=== PATIENT | female | born 1985 | race African-American/Black ===

== ENCOUNTER 2017-10-20 17:28 | Emergency (ER) | payer BC ==
[2017-10-20 17:40] VITALS: BP 136/77
--- NOTE | 2017-10-20 17:52 | ER Document Report ---
ED Medical Screen (RME) - General Mode of Arrival: Ambulatory Information source: Patient TRAVEL OUTSIDE OF THE [place] IN LAST 30 DAYS: No - General Chief Complaint: Flank Pain Stated Complaint: FLANK PAIN Time Seen by Provider: 10/20/17 17:39 Notes: Patient is a 31 year old female presenting to the emergency department complaining of left flank pain and abdominal onset yesterday. Patient states the flank pain radiates into her lower left abdomen. She describes the pain as a sharp waxing and waning. Patient mentions having a bowel movement earlier which appears to have alleviated some of the pain. Patient denies urinary burning, frequency, vomiting or nausea. Patient states she is currently on her period so she is unsure if she has had any hematuria. GENERAL: Alert, interacts well. No acute distress. HEAD: Normocephalic, Atraumatic. NECK: Full range of motion. Supple. Trachea midline. LUNGS: Clear to auscultation bilaterally, no wheezes, rales, or rhonchi. No respiratory distress. HEART: Regular rate and rhythm. No murmurs, gallops, or rubs. ABDOMEN: Soft, non-tender. Non-distended. Bowel sounds present in all 4 quadrants. EXTREMITIES: Moves all four extremities spontaneously. PSYCH: Normal affect, normal mood. I have greeted and performed a rapid initial assessment of this patient. A comprehensive ED assessment and evaluation of the patient, analysis of test results and completion of the medical decision making process will be conducted by additional ED providers. (ABBIE TRAN) - Related Data Allergies/Adverse Reactions: No Known Allergies Allergy (Unverified 10/20/17 17:34) Past Medical History - Social History Chew tobacco use (# tins/day): No Frequency of alcohol use: None Drug Abuse: None Renal/ Medical History: Denies: Hx Peritoneal Dialysis - Vital signs Vitals: Temp Pulse Resp BP Pulse Ox 98.9 F 97 18 136/77 H 100 10/20/17 17:38 10/20/17 17:38 10/20/17 17:38 10/20/17 17:38 10/20/17 17:38 - Vital Signs Vital signs: Temp Pulse Resp BP Pulse Ox 98.9 F 97 18 136/77 H 100 10/20/17 17:38 10/20/17 17:38 10/20/17 17:38 10/20/17 17:38 10/20/17 17:38
[2017-10-20 18:33] LABS: ABSOLUTE LYMPHOCYTES (AUTO) 1.8 10^3/uL (0.5-4.7); ABSOLUTE MONOCYTES (AUTO) 0.5 10^3/uL (0.1-1.4); ABSOLUTE NEUT (AUTO) 8.6 10^3/uL (1.7-8.2); BASOPHILS % (AUTO) 0.3 % (0-2); EOSINOPHILS % (AUTO) 0.2 % (0-6); HEMATOCRIT 37.7 % (36.0-47.0); HEMOGLOBIN 12.5 g/dL (12.0-15.5); LYMPHOCYTES % (AUTO) 16.3 % (13-45); MEAN CORPUSCULAR HEMOGLOBIN 29.7 pg (27.0-33.4); MEAN CORPUSCULAR HGB CONC 33.1 g/dL (32.0-36.0); MEAN CORPUSCULAR VOLUME 90 fl (80-97); MONOCYTES % (AUTO) 4.9 % (3-13); PLATELET COUNT 329 10^3/uL (150-450); RED CELL DISTRIBUTION WIDTH 14.7 % (11.5-14.0); SEGMENTED NEUTROPHILS % (AUTO) 78.3 % (42-78); TOTAL CELLS COUNTED % (AUTO) 100 %
[2017-10-20 18:38] LABS: AMORPHOUS SEDIMENT,URINE TRACE /HPF; APPEARANCE,URINE SLIGHTLY-CLOUDY; BILIRUBIN,URINE NEGATIVE (NEGATIVE); COLOR,URINE YELLOW; GLUCOSE, URINE NEGATIVE (NEGATIVE); KETONES,URINE NEGATIVE (NEGATIVE); LEUKOCYTE ESTERASE,URINE NEGATIVE (NEGATIVE); NITRITE,URINE NEGATIVE (NEGATIVE); PROTEIN,URINE NEGATIVE (NEGATIVE); URINE SPECIFIC GRAVITY 1.018
[2017-10-20 18:52] LABS: ALANINE AMINOTRANSFERASE 20 U/L (9-52); ALBUMIN 4.3 g/dL (3.5-5.0); ALKALINE PHOSPHATASE 58 U/L (38-126); ANION GAP 13 (5-19); ASPARTATE AMINO TRANSFERASE 20 U/L (14-36); BILIRUBIN,DIRECT 0.2 mg/dL (0.0-0.4); BILIRUBIN,TOTAL 0.2 mg/dL (0.2-1.3); BLOOD UREA NITROGEN 9 mg/dL (7-20); CALCIUM 9.5 mg/dL (8.4-10.2); CARBON DIOXIDE 24 mmol/L (22-30); CHLORIDE 107 mmol/L (98-107); GLUCOSE 89 mg/dL (75-110); POTASSIUM 3.7 mmol/L (3.6-5.0); TOTAL PROTEIN 7.5 g/dL (6.3-8.2)
[2017-10-20] MEDS ORDERED: ONDANSETRON HCL INJ/PF 4 MG/2 ML SDV IV ONE (18:59)
[2017-10-20] MEDS ORDERED: KETOROLAC TROMETHAMINE INJ/PF 30 MG/1 ML SDV IV ONE (19:00)
--- NOTE | 2017-10-20 19:19 | RADIOLOGY REPORT (SQ) ---
EXAM DESCRIPTION: CT LTD RENAL STONE PROTOCOL ON COMPLETED DATE/TIME: 10/20/2017 7:08 pm REASON FOR STUDY: flank pain, evaluate for stone COMPARISON: None. TECHNIQUE: CT scan of the abdomen and pelvis performed without intravenous or oral contrast. Images reviewed with lung, soft tissue, and bone windows. Reconstructed coronal and sagittal MPR images revi ewed. All images stored on PACS. All CT scanners at this facility use dose modulation, iterative reconstruction, and/or weight based d osing when appropriate to reduce radiation dose to as low as reasonably achievable (ALARA). [facility]: Dose Right [facility]: CareDose [facility]: Dose Right [facility]: Teradose 4D [facility]: Smart DNsolution RADIATION DOSE: CT Rad equipment meets quality standard of care and radiation dose reduction techniq ues were employed. CTDIvol: 7.9 mGy. DLP: 423 mGy-cm.mGy. LIMITATIONS: None. FINDINGS: A 2 mm distal left ureteral calculus is present causing mild left hydronephrosis and hydro ureter. Stone is best shown on axial image AP and coronal image 37. Tiny nonobstructive left lower pole intrarenal nonobstructive stone. No left renal cysts or masses. No left perinephric stranding. LOWER CHEST: No significant findings. No nodules or infiltrates. NON-CONTRASTED LIVER, SPLEEN, ADRENALS: Evaluation limited by lack of IV contrast. No identified sign ificant masses. PANCREAS: No masses. No peripancreatic inflammatory changes. GALLBLADDER: Post cholecystectomy RIGHT KIDNEY AND URETER: No suspicious masses. Assessment limited by lack of IV contrast. No signif icant calcifications. No hydronephrosis or hydroureter. LEFT KIDNEY AND URETER: As above AORTA AND RETROPERITONEUM: No aneurysm. No retroperitoneal masses or adenopathy. BOWEL AND PERITONEAL CAVITY: No obvious masses or inflammatory changes. No free fluid. APPENDIX: Normal. PELVIS, BLADDER, AND ABDOMINAL WALL:No abnormal masses. No free fluid. Bladder normal. Normal size u terus and ovaries. Clips post tubal ligation BONES: No significant findings. OTHER: No other significant finding. IMPRESSION: 2 mm distal left ureteral stone with mild left hydronephrosis and hydroureter COMMENT: Quality ID # [id number]: Final reports with documentation of one or more dose reduction techniques (e.g., Automated exposure control, adjustment of the mA and/or kV according to patient size, use of iterative reconstruction technique) TECHNICAL DOCUMENTATION: JOB ID: [id number] [employer]- All Rights Reserved Reading location - IP/workstation name: [email or web address]
--- NOTE | 2017-10-20 19:39 | ER Document Report ---
ED GI/ - General Mode of Arrival: Ambulatory Information source: Patient TRAVEL OUTSIDE OF THE [place] IN LAST 30 DAYS: No <CHRISTEN ASHTON - Last Filed: 10/20/17 20:38> <REZA BUTLER - Last Filed: 10/20/17 20:51> - General Chief Complaint: Flank Pain Stated Complaint: FLANK PAIN Time Seen by Provider: 10/20/17 17:39 Notes: 31-year-old female that presents to the emergency department today with complaints of left-sided flank pain. Patient states the pain started abruptly. Patient states her pain is now controlled with the medicine she was given in triage. patient denies having history of kidney stones. Patient denies any vaginal discharge. (CHRISTEN ASHTON) - Related Data Allergies/Adverse Reactions: No Known Allergies Allergy (Unverified 10/20/17 17:34) Past Medical History - General Information source: Patient - Social History Smoking Status: Never Smoker Cigarette use (# per day): No Chew tobacco use (# tins/day): No Frequency of alcohol use: None Drug Abuse: None Family History: Reviewed & Not Pertinent Patient has suicidal ideation: No Patient has homicidal ideation: No Neurological Medical History: Reports: Hx Migraine Renal/ Medical History: Denies: Hx Peritoneal Dialysis Past Surgical History: Reports: Hx Cholecystectomy <CHRISTEN ASHTON - Last Filed: 10/20/17 20:38> Review of Systems - Review of Systems Constitutional: No symptoms reported EENT: No symptoms reported Cardiovascular: No symptoms reported Respiratory: No symptoms reported Gastrointestinal: No symptoms reported Genitourinary: See HPI, Flank pain. denies: Discharge Female Genitourinary: No symptoms reported Musculoskeletal: No symptoms reported Skin: No symptoms reported Hematologic/Lymphatic: No symptoms reported Neurological/Psychological: No symptoms reported -: Yes All other systems reviewed and negative <CHRISTEN ASHTON - Last Filed: 10/20/17 20:38> Physical Exam - Vital signs Interpretation: Normal - General General appearance: Alert In distress: None - Appears uncomfortable - HEENT Head: Normocephalic, Atraumatic Eyes: Normal Pupils: PERRL - Respiratory Respiratory status: No respiratory distress Chest status: Nontender Breath sounds: Normal Chest palpation: Normal - Cardiovascular Rhythm: Regular Heart sounds: Normal auscultation Murmur: No - Abdominal Inspection: Normal Distension: No distension Bowel sounds: Normal Tenderness: Nontender Organomegaly: No organomegaly - Back Back: Normal, CVA tenderness - L - Extremities General upper extremity: Normal inspection, Nontender, Normal color, Normal ROM , Normal temperature General lower extremity: Normal inspection, Nontender, Normal color, Normal ROM , Normal temperature, Normal weight bearing. No: Oscar's sign - Neurological Neuro grossly intact: Yes Cognition: Normal Orientation: AAOx4 [place] Coma Scale Eye Opening: Spontaneous [place] Coma Scale Verbal: Oriented [place] Coma Scale Motor: Obeys Commands [place] Coma Scale Total: 15 Speech: Normal Motor strength normal: LUE, RUE, LLE, RLE Sensory: Normal - Psychological Associated symptoms: Normal affect, Normal mood - Skin Skin Temperature: Warm Skin Moisture: Dry Skin Color: Normal <REZA BUTLER - Last Filed: 10/20/17 20:51> - Vital signs Vitals: Temp Pulse Resp BP Pulse Ox 98.9 F 97 18 136/77 H 100 10/20/17 17:38 10/20/17 17:38 10/20/17 17:38 10/20/17 17:38 10/20/17 17:38 Course - Laboratory Result Diagrams: 10/20/17 18:04 10/20/17 18:04 <CHRISTEN ASHTON - Last Filed: 10/20/17 20:38> - Laboratory Result Diagrams: 10/20/17 18:04 10/20/17 18:04 - Diagnostic Test Radiology reviewed: Reports reviewed <REZA BUTLER - Last Filed: 10/20/17 20:51> - Re-evaluation Re-evalutation: 10/20/17 Patient is a 31-year-old female who comes in complaining of flank pain radiating to her pelvis that began the sudden onset. No vaginal bleeding or discharge. Patient is nauseated without vomiting. She is currently on her period. No history of kidney stones. No dysuria recently. Blood work within normal limits. Urine with a lot of blood. CT showing a 2 mm ureteral stone on the left consistent with the patient's exam and history. She has had relief of symptoms with Toradol. She will be given a prescription for pain medication and nausea medicine. She has been given information for following up with the primary care doctor and urologist as needed. Patient understands and agrees with plan. Grateful for care. Return if any worsening or concerning symptoms. Stable for discharge. (REZA BUTLER) - Vital Signs Vital signs: Temp Pulse Resp BP Pulse Ox 98.9 F 97 18 136/77 H 100 10/20/17 17:38 10/20/17 17:38 10/20/17 17:38 10/20/17 17:38 10/20/17 17:38 - Laboratory Laboratory results interpreted by me: 10/20/17 10/20/17 18:04 18:04 WBC 11.0 H RDW 14.7 H Seg Neutrophils % 78.3 H Absolute Neutrophils 8.6 H Urine Blood LARGE H Urine Urobilinogen 4.0 H Discharge <CHRISTEN ASHTON - Last Filed: 10/20/17 20:38> <REZA BUTLER - Last Filed: 10/20/17 20:51> - Discharge Clinical Impression: Ureteral stone Condition: Stable Disposition: HOME, SELF-CARE Instructions: Family Physicians / Practices, Kidney Stone ([facility]) Additional Instructions: Please follow-up with the primary care doctor within the next week or 2. Please return if her symptoms are worse. Discuss referral to a urologist if you have repeat symptoms. Prescriptions: Ondansetron [Zofran Odt 4 mg Tablet] 1 tab PO Q6HP PRN #15 tab.rapdis PRN Reason: For Nausea/Vomiting Ketorolac Tromethamine [Toradol 10 mg Tablet] 10 mg PO BIDP PRN #20 tablet PRN Reason: Forms: Elevated Blood Pressure Scribe Attestation: 10/20/17 20:51 I personally performed the services described in the documentation, reviewed and edited the documentation which was dictated to the scribe in my presence, and it accurately records my words and actions. (REZA BUTLER)
[2017-10-20] MEDS ORDERED: ONDANSETRON ODT 4 MG TAB (6 TAB/ER DISP) PO PRN (19:53)
[2017-10-20] MEDS ORDERED: HYDROCODONE/ACETAMINOPHEN 5-325 MG (6 TAB/ER DISP) PO PRN (19:53)
== END 2017-10-20 20:11 | disposition home or self-care (01) ==
LOC: ER 17:28
DX: N13.2 Hydronephrosis with renal and ureteral calculous obstruction (principal); R11.0 Nausea; R10.9 Unspecified abdominal pain
CPT/HCPCS: 99284; 96374; 96375; 36415; 84703; 85025; 80053; 81001; 76380; J1885; J2405